=== PATIENT | female | born 1985 | race Caucasian/White ===

== ENCOUNTER → 2017-12-16 | Outpatient (CLI) | payer MEDICAID ==
[2014-06-02 17:44] VITALS: BP 143/93
[~2017-12-16] MED LIST: ATIVAN0.5 MG PO; BIRTH CONTROL PO; CELEXA10 MG; FLUOXETINE40 MG PO; LIDODERM PATCH TP; METHOCARBAMOL750 MG PO; PERCOCET 325 MG1 TAB PO; SOMA350 MG; SUMATRIPTAN; TYLENOL W CODEIN1 ML PO
== END ==
LOC: LAB 09:37
DX: R68.89 Other general symptoms and signs (principal); Z88.0 Allergy status to penicillin; Z88.2 Allergy status to sulfonamides